=== PATIENT | female | born 2000 | race Caucasian/White ===

== ENCOUNTER 2022-03-17 08:38 | Day surgery (SDC) | payer SELFPAY ==
[2022-03-17] MEDS ORDERED: Ondansetron PF 4 MG/2 ML Vial ONE ×3 (09:53→18:33)
[2022-03-17] MEDS ORDERED: Ketorolac Tromethamine 30 MG/ML VIAL ONE ×2 (09:53→16:42)
[2022-03-17 09:55] LABS: #Eosinphils 0.2 thou/uL (0.0-0.7); #Lymphocytes 1.9 thou/uL (1.20-3.40); #Monocytes 0.5 thou/uL (0.11-0.59); #Neutrophils 2.7 thou/uL (1.40-6.50); %Basophils 0.9 % (0.0-1.0); %Eosinophils 3.8 % (0.0-10.0); %Lymphocytes 35.3 % (28.0-48.0); %Monocytes 8.8 % (0.0-4.0); %Neutrophils 51.2 % (31.0-61.0); Hemoglobin 12.4 g/dL (12.0-16.0); Mean Corpuscular HGB CONC 32.8 g/dL (32.0-36.0); Mean Corpuscular Hemoglobin 29.9 pg (25.0-35.0); Mean Corpuscular Volume 91.1 fL (78.0-98.0); Mean Platelet Volume 10.1 fL (7.4-10.4); Platelet Count 192 thou/uL (130-400); RBC Distribution Width 11.4 % (11.5-14.5); Red Blood Cell (RBC) Count 4.15 mill/uL (4.00-5.20); White Blood Cell (WBC) Count 5.2 thou/uL (4.8-10.8)
[2022-03-17 10:11] LABS: ALT (SGPT) 8 U/L (8-55); AST (SGOT) 10 U/L (5-34); Albumin 4.4 g/dL (3.5-5.0); Alkaline Phosphatase 45 U/L (40-100); Anion Gap 13 mmol/L (10-20); BUN (Urea Nitrogen) 7 mg/dL (7.0-18.7); Bilirubin, Total Less than 0.2 mg/dL (0.2-1.2); Calc. Creatinine Clearance 0 mL/min (70-130); Calcium 9.1 mg/dL (7.8-10.44); Carbon Dioxide 21 mmol/L (22-29); Chloride 108 mmol/L (98-107); Estimated GFR 130; Globulin 2.5 g/dL (2.4-3.5); Glucose 89 mg/dL (70-105); Lipase 34 U/L (8-78); Potassium 3.6 mmol/L (3.5-5.1); Protein, Total 6.9 g/dL (6.0-8.3); Sodium 138 mmol/L (136-145)
[2022-03-17 10:51] LABS: Bilirubin Negative (Negative); Blood, Urine Negative (Negative); Clarity Clear (Clear); Glucose, Urine (Dipstick) Normal (Negative); Ketone, Urine Negative (Negative); Leukocyte Negative Leu/uL (Negative); Nitrite Negative (Negative); Protein, Urine (Dipstick) Negative (Neg-Trace); Specific Gravity, Urine 1.011 (1.002-1.036); Urobilinogen Normal mg/dL (Less than 2); pH, Urine 6.5 (5.0-9.0)
[2022-03-17 10:53] LABS: Pregnancy Test - Urine (BHCG) Negative (Negative); Specific Gravity 1.011 (1.002-1.036)
[2022-03-17 10:54] LABS: Pregu Control Background? CLEAR/WHITE (CLR/WHITE); Pregu Control Bar Appear? YES (CONTROL BAR)
[2022-03-17] MEDS ORDERED: Levofloxacin 500 mg/D5W 100 ml Premix Bag ONE (11:49)
[2022-03-17 12:30] LABS: SARS-CoV-2 NAA Rapid Test Not Detected (NotDetected)
[2022-03-17] MEDS ORDERED: Bupivacaine/Epinephrine 0.25% 30 ML VIAL ONE (15:24)
[2022-03-17] MEDS ORDERED: Midazolam HCl 2 mg/2 ml Vial ONE (16:19)
[2022-03-17] MEDS ORDERED: fentaNYL Citrate/PF 100 MCG/2 ML SYRINGE ONE ×2 (16:20→18:06)
[2022-03-17] MEDS ORDERED: PROPOFOL 200 MG/20 ML VIAL ONE (16:42)
[2022-03-17] MEDS ORDERED: Lidocaine 1% PF 5 ML VIAL ONE (16:42)
[2022-03-17] MEDS ORDERED: Dexamethasone 20 MG/5 ML VIAL ONE (16:42)
[2022-03-17] MEDS ORDERED: Rocuronium Bromide 10 MG/ML (10ML VIAL) ONE (16:42)
[2022-03-17] MEDS ORDERED: HYDROcodone/Acetaminophen 5/325 mg Tablet ONE (19:04)
== END 2022-03-17 20:30 | disposition home or self-care (01) ==
LOC: ERS 08:38 → SDC 13:37
PROVIDERS: ATTEND Specialist
PROC: 0FT44ZZ Resection of Gallbladder, Percutaneous Endoscopic Approach (ICD-10-PCS; principal; 2022-03-17)
DX: K80.13 Calculus of gallbladder with acute and chronic cholecystitis with obstruction (principal); K82.1 Hydrops of gallbladder; F17.290 Nicotine dependence, other tobacco product, uncomplicated; Z20.822 Contact with and (suspected) exposure to COVID-19
CPT/HCPCS: 76705; 80053; 81003; 81025; 83690; 85025; 88304; 96365; 96375; C1713; J1100; J1885; J1956; J2250; J2405; J2704; U0002